=== PATIENT | female | born 1970 | race Native Hawaiian/Other Pacific Islander ===

== ENCOUNTER 2016-09-12 12:05 | Outpatient (CLI) | payer OTHER ==
[~2016-09-12 12:05] MED LIST: CITALOPRAM20 MG PO; HYDR2TAB12 PO; IMURAN50 MG OR; METO5SYP21 PO; NEURONTIN800 MG PO; NEXIUM40 M1 PO; PREDNISONE5 MG OR; PROGRAF1 MG OR
[2016-09-12 12:46] LABS: PLATELET COUNT 79 K/uL (152-353)
== END 2016-09-12 20:12 | disposition home or self-care (01) ==
LOC: LABW 12:05
PROVIDERS: Internal Medicine Nephrology
DX: Z94.0 Kidney transplant status (principal); Z79.899 Other long term (current) drug therapy; Z51.81 Encounter for therapeutic drug level monitoring
CPT/HCPCS: 36415; 80053; 80197; 81000; 82977; 83735; 84550; 85027; 85610

== ENCOUNTER 2016-10-02 09:12 | Outpatient (CLI) | payer OTHER ==
[~2016-10-02] VITALS: Ht 160 cm; Wt 78.0 kg
[2016-10-02 09:25] VITALS: BP 133/77; TEMP 98.2
== END 2016-10-02 23:39 | disposition home or self-care (01) ==
LOC: INF 09:12
DX: M81.0 Age-related osteoporosis without current pathological fracture (principal)
CPT/HCPCS: 96372; J0897

== ENCOUNTER 2016-10-12 07:15 | Outpatient (CLI) | payer OTHER ==
[2016-10-12 07:48] LABS: PLATELET COUNT 158 K/uL (152-353)
[2016-10-12 07:54] LABS: POTASSIUM 3.9 mmol/L (3.6-5.2)
== END 2016-10-12 19:46 | disposition home or self-care (01) ==
LOC: LABW 07:15
PROVIDERS: Internal Medicine Nephrology
DX: Z94.0 Kidney transplant status (principal); Z79.899 Other long term (current) drug therapy; Z51.81 Encounter for therapeutic drug level monitoring; K75.4 Autoimmune hepatitis; K74.69 Other cirrhosis of liver
CPT/HCPCS: 36415; 80053; 80197; 81000; 82977; 83735; 84550; 85027; 85610; 87077; 87086; 87088; 87185; 87186

== ENCOUNTER 2017-01-01 08:09 | Outpatient (CLI) | payer OTHER ==
[2017-01-01 08:23] LABS: PLATELET COUNT 168 K/uL (152-353)
[2017-01-01 09:12] LABS: POTASSIUM 3.9 mmol/L (3.6-5.2)
== END 2017-01-01 09:00 | disposition home or self-care (01) ==
LOC: LABW 08:09
PROVIDERS: Internal Medicine Nephrology
DX: Z94.0 Kidney transplant status (principal); Z79.899 Other long term (current) drug therapy; Z51.81 Encounter for therapeutic drug level monitoring
CPT/HCPCS: 36415; 80053; 80197; 81000; 83735; 85027; 87077; 87086; 87088; 87186

== ENCOUNTER 2017-03-08 06:31 | Outpatient (CLI) | payer OTHER ==
[2017-03-08 07:00] LABS: PLATELET COUNT 180 K/uL (152-353)
[2017-03-08 07:17] LABS: POTASSIUM 4.6 mmol/L (3.6-5.2)
== END 2017-03-08 19:12 | disposition home or self-care (01) ==
LOC: LABW 06:31
PROVIDERS: Internal Medicine Nephrology
DX: Z94.0 Kidney transplant status (principal); Z79.899 Other long term (current) drug therapy; Z51.81 Encounter for therapeutic drug level monitoring
CPT/HCPCS: 36415; 80053; 80197; 81000; 82977; 83735; 84100; 84550; 85027; 85610

== ENCOUNTER 2017-04-01 09:02 | Outpatient (CLI) | payer OTHER ==
[~2017-04-01] VITALS: Ht 160 cm; Wt 96.2 kg
== END 2017-04-01 10:02 | disposition home or self-care (01) ==
LOC: INF 09:02
DX: M81.0 Age-related osteoporosis without current pathological fracture (principal)
CPT/HCPCS: 36415; 82310; 96372; J0897

== ENCOUNTER 2017-05-04 07:19 | Outpatient (CLI) | payer OTHER ==
[2017-05-04 08:09] LABS: PLATELET COUNT 197 K/uL (152-353)
[2017-05-04 08:17] LABS: POTASSIUM 4.3 mmol/L (3.6-5.2); SODIUM 137 mmol/L (136-145)
== END 2017-05-04 08:20 | disposition home or self-care (01) ==
LOC: LABW 07:19
PROVIDERS: Internal Medicine Nephrology
DX: K75.4 Autoimmune hepatitis (principal); K74.69 Other cirrhosis of liver; Z94.0 Kidney transplant status; Z79.899 Other long term (current) drug therapy; Z51.81 Encounter for therapeutic drug level monitoring
CPT/HCPCS: 36415; 80053; 80197; 81000; 83735; 85027; 87086; 87088

== ENCOUNTER 2017-06-08 07:41 | Outpatient (CLI) | payer OTHER ==
[2017-06-08 08:48] LABS: PLATELET COUNT 200 K/uL (152-353)
[2017-06-08 09:07] LABS: POTASSIUM 4.2 mmol/L (3.6-5.2)
== END 2017-06-08 21:14 | disposition home or self-care (01) ==
LOC: LABW 07:41
PROVIDERS: Internal Medicine Nephrology
DX: K75.4 Autoimmune hepatitis (principal); K74.69 Other cirrhosis of liver; Z94.0 Kidney transplant status; Z79.899 Other long term (current) drug therapy; Z51.81 Encounter for therapeutic drug level monitoring
CPT/HCPCS: 36415; 80053; 80197; 81000; 82977; 83735; 84100; 84550; 85027; 85610

== ENCOUNTER 2017-07-13 06:00 | Outpatient (CLI) | payer OTHER ==
[2017-07-13 06:21] LABS: PLATELET COUNT 211 K/uL (152-353)
[2017-07-13 06:38] LABS: POTASSIUM 4.2 mmol/L (3.6-5.2)
== END 2017-07-13 07:00 | disposition home or self-care (01) ==
LOC: LABW 06:00
PROVIDERS: Internal Medicine Nephrology
DX: Z94.0 Kidney transplant status (principal); Z79.899 Other long term (current) drug therapy; Z51.81 Encounter for therapeutic drug level monitoring; K75.4 Autoimmune hepatitis; K74.60 Unspecified cirrhosis of liver; E55.9 Vitamin D deficiency, unspecified
CPT/HCPCS: 36415; 80053; 80197; 81000; 82306; 83735; 85027; 85610; 87086; 87088

== ENCOUNTER 2017-09-06 12:23 | Outpatient (CLI) | payer OTHER ==
[2017-09-06 12:49] LABS: PLATELET COUNT 215 K/uL (152-353)
[2017-09-06 13:49] LABS: POTASSIUM 4.8 mmol/L (3.6-5.2)
== END 2017-09-06 21:53 | disposition home or self-care (01) ==
LOC: LABW 12:23
PROVIDERS: Internal Medicine Gastroenterology
DX: K75.4 Autoimmune hepatitis (principal)
CPT/HCPCS: 36415; 80053; 82977; 83735; 84100; 84550; 85027; 85610

== ENCOUNTER 2017-10-29 06:44 | Outpatient (CLI) | payer OTHER ==
[2017-10-29 07:24] LABS: PLATELET COUNT 220 K/uL (152-353)
== END 2017-10-29 18:00 | disposition home or self-care (01) ==
LOC: LAB 06:44
PROVIDERS: Nurse Practitioner Family
DX: Z94.0 Kidney transplant status (principal); Z79.899 Other long term (current) drug therapy; Z51.81 Encounter for therapeutic drug level monitoring
CPT/HCPCS: 36415; 80053; 80197; 81000; 82977; 83735; 84100; 84550; 85027; 85610; 87086; 87088

== ENCOUNTER 2018-01-01 14:10 | Outpatient (CLI) | payer OTHER | END 2018-01-01 20:36 | disposition home or self-care (01) | LOC: LAB 14:10 | DX: R19.7 Diarrhea, unspecified (principal) | CPT/HCPCS: 82272; 87015; 87045; 87077; 87205; 87324; 87328; 87329; 87449; 87899 ==

== ENCOUNTER 2018-03-11 13:49 | Outpatient (CLI) | payer OTHER | END 2018-03-11 23:42 | disposition home or self-care (01) | LOC: LAB 13:49 | DX: R19.7 Diarrhea, unspecified (principal) | CPT/HCPCS: 82272; 87015; 87045; 87077; 87186; 87205; 87324; 87328; 87329; 87449; 87899 ==

== ENCOUNTER 2018-03-24 10:34 | Outpatient (CLI) | payer OTHER ==
[2018-03-24 11:27] LABS: POTASSIUM 4.1 mmol/L (3.6-5.2)
== END 2018-03-24 21:13 | disposition home or self-care (01) ==
LOC: LAB 10:34
PROVIDERS: Internal Medicine
DX: B96.5 Pseudomonas (aeruginosa) (mallei) (pseudomallei) as the cause of diseases classified elsewhere (principal)
CPT/HCPCS: 80053; 80170

== ENCOUNTER 2018-03-31 13:09 | Outpatient (CLI) | payer OTHER | END 2018-03-31 21:42 | disposition home or self-care (01) | LOC: LAB 13:09 | DX: R19.7 Diarrhea, unspecified (principal); A49.8 Other bacterial infections of unspecified site | CPT/HCPCS: 82272; 87015; 87045; 87077; 87186; 87205; 87324; 87328; 87329; 87449; 87899 ==

== ENCOUNTER 2018-05-02 09:50 | Outpatient (CLI) | payer OTHER | END 2018-05-02 22:17 | disposition home or self-care (01) | LOC: LABW 09:50 | DX: R19.7 Diarrhea, unspecified (principal) | CPT/HCPCS: 82272; 82705; 83630; 87015; 87045; 87324; 87328; 87329; 87449; 87899 ==

== ENCOUNTER 2018-06-02 07:29 | Outpatient (CLI) | payer OTHER ==
[2018-06-02 08:03] LABS: POTASSIUM 3.9 mmol/L (3.6-5.2)
[2018-06-02 08:26] LABS: PLATELET COUNT 268 K/uL (152-353)
== END 2018-06-02 19:49 | disposition home or self-care (01) ==
LOC: LABW 07:29
PROVIDERS: Transplant Surgery
DX: N25.0 Renal osteodystrophy (principal); E83.42 Hypomagnesemia; Z94.0 Kidney transplant status; Z79.899 Other long term (current) drug therapy
CPT/HCPCS: 36415; 80053; 80197; 81000; 83735; 85027

== ENCOUNTER 2018-06-25 12:48 | Outpatient (CLI) | payer OTHER | END 2018-06-25 19:57 | disposition home or self-care (01) | LOC: LABW 12:48 | DX: Z94.0 Kidney transplant status (principal); Z79.899 Other long term (current) drug therapy | CPT/HCPCS: 36415; 87497; 87799 ==

== ENCOUNTER 2018-07-01 07:50 | Outpatient (CLI) | payer OTHER | END 2018-07-01 22:20 | disposition home or self-care (01) | LOC: LABW 07:50 | DX: E11.9 Type 2 diabetes mellitus without complications (principal); R19.7 Diarrhea, unspecified | CPT/HCPCS: 36415; 83036; 87015; 87045; 87324; 87328; 87329; 87449; 87899 ==

== ENCOUNTER 2018-07-17 07:45 | Outpatient (CLI) | payer OTHER ==
[2018-07-17 08:18] LABS: PLATELET COUNT 225 K/uL (152-353)
[2018-07-17 08:23] LABS: POTASSIUM 4.2 mmol/L (3.6-5.2)
== END 2018-07-17 23:33 | disposition home or self-care (01) ==
LOC: LABW 07:45
PROVIDERS: Internal Medicine Gastroenterology
DX: K74.60 Unspecified cirrhosis of liver (principal)
CPT/HCPCS: 36415; 80053; 85027; 85610

== ENCOUNTER 2018-07-29 15:36 | Outpatient (CLI) | payer OTHER | END 2018-07-29 22:42 | disposition home or self-care (01) | LOC: LAB 15:36 | DX: R19.7 Diarrhea, unspecified (principal) | CPT/HCPCS: 87015; 87045; 87324; 87328; 87329; 87449; 87899 ==

== ENCOUNTER 2018-10-09 08:04 | Outpatient (CLI) | payer OTHER ==
[2018-10-09 08:35] LABS: PLATELET COUNT 305 K/uL (152-353)
[2018-10-09 09:04] LABS: POTASSIUM 4.2 mmol/L (3.6-5.2)
== END 2018-10-09 21:40 | disposition home or self-care (01) ==
LOC: LABW 08:04
PROVIDERS: Transplant Surgery
DX: Z94.0 Kidney transplant status (principal); Z89.9 Acquired absence of limb, unspecified; R82.90 Unspecified abnormal findings in urine
CPT/HCPCS: 36415; 80053; 80197; 81000; 83735; 85027; 85610; 87077; 87086; 87088; 87186

== ENCOUNTER 2019-04-01 09:52 | Outpatient (CLI) | payer OTHER ==
[~2019-04-01] VITALS: Ht 157.5 cm; Wt 101.6 kg
[2019-04-01 10:20] VITALS: BP 139/88; TEMP 98
== END 2019-04-01 11:14 | disposition home or self-care (01) ==
LOC: INF 09:52
DX: M81.0 Age-related osteoporosis without current pathological fracture (principal)
CPT/HCPCS: 36415; 82310; 96372; J0897

== ENCOUNTER 2019-10-07 09:27 | Outpatient (CLI) | payer OTHER ==
[~2019-10-07] VITALS: Ht 157.5 cm; Wt 99.8 kg
[2019-10-07 09:40] VITALS: BP 124/83; TEMP 98.1
== END 2019-10-07 10:25 | disposition home or self-care (01) ==
LOC: INF 09:27
DX: M81.0 Age-related osteoporosis without current pathological fracture (principal)
CPT/HCPCS: 36415; 82310; 96372; J0897

== ENCOUNTER 2020-04-19 07:46 | Outpatient (CLI) | payer OTHER ==
[~2020-04-19] VITALS: Ht 157.5 cm; Wt 99.8 kg
[2020-04-19 08:30] VITALS: BP 168/98; TEMP 98.1
== END 2020-04-19 09:30 | disposition home or self-care (01) ==
LOC: INF 07:46
DX: M81.0 Age-related osteoporosis without current pathological fracture (principal)
CPT/HCPCS: 36415; 82310; 96372; J0897

== ENCOUNTER 2020-12-19 11:49 | Outpatient (CLI) | payer OTHER ==
[~2020-12-19] VITALS: Ht 157.5 cm; Wt 99.8 kg
[2020-12-19 13:01] VITALS: BP 134/82; TEMP 98
== END 2020-12-19 12:55 | disposition home or self-care (01) ==
LOC: INF 11:49
PROVIDERS: ATTEND Internal Medicine Endocrinology, Diabetes & Metabolism
DX: M81.0 Age-related osteoporosis without current pathological fracture (principal)
CPT/HCPCS: 36415; 82310; 96372; J0897

== ENCOUNTER 2021-05-05 10:40 | Outpatient (CLI) | payer OTHER | END 2021-05-05 21:42 | disposition home or self-care (01) | LOC: RESP 10:40 | PROVIDERS: ATTEND Internal Medicine Cardiovascular Disease | DX: R07.89 Other chest pain (principal); I10 Essential (primary) hypertension; I25.10 Atherosclerotic heart disease of native coronary artery without angina pectoris ==

== ENCOUNTER 2021-06-22 08:39 | Outpatient (CLI) | payer OTHER ==
[~2021-06-22] VITALS: Ht 157.5 cm; Wt 99.8 kg
[2021-06-22 10:18] VITALS: BP 127/57; TEMP 9832
== END 2021-06-22 20:01 | disposition home or self-care (01) ==
LOC: INF 08:39
PROVIDERS: ATTEND Internal Medicine Endocrinology, Diabetes & Metabolism
DX: M81.0 Age-related osteoporosis without current pathological fracture (principal)
CPT/HCPCS: 36415; 82310; 96365; J0897